=== PATIENT | female | born 1975 | race Caucasian/White ===

== ENCOUNTER 2021-05-01 08:14 | Emergency (ER) | payer SELFPAY ==
[~2021-05-01] VITALS: Ht 165.1 cm; Wt 102.1 kg
[2021-05-01 08:15] VITALS: BP 144/88
--- NOTE | 2021-05-01 08:21 | NUR ---
pt triaged and placed in lobby
--- NOTE | 2021-05-01 08:27 | NUR ---
pt being assessed by ermd at this time
[2021-05-01] MEDS ORDERED: IBUPROFEN 600 MG TAB PO ONE (08:30)
--- NOTE | 2021-05-01 08:38 | NUR ---
PT TAKEN TO RADIOLOGY VIA W/C.
--- NOTE | 2021-05-01 08:44 | NUR ---
PT BACK FROM XRAY, TAKEN TO ER BED 9
[2021-05-01] MEDS ORDERED: CEPH500C16 PO (09:18)
[2021-05-01 09:37] VITALS: BP 134/70
== END 2021-05-01 09:38 | disposition home or self-care (01) ==
LOC: MED 08:14
DX: L03.115 Cellulitis of right lower limb (principal)
CPT/HCPCS: 73562; 99283

== ENCOUNTER 2021-11-11 18:28 | Emergency (ER) | payer SELFPAY ==
[~2021-11-11] VITALS: Ht 165.1 cm; Wt 98.2 kg
[~2021-11-11 18:28] MED LIST: CEPH500C16 PO
[2021-11-11 18:42] VITALS: BP 159/121
--- NOTE | 2021-11-11 18:47 | NUR ---
PT AMB TO BED 7.
--- NOTE | 2021-11-11 18:59 | NUR ---
Pt coming from home ambulatory with steady gait. VSS. A&Ox4. Pt c/o right knee pain and swelling x5 days that happened abruptly. No trauma. Rates pain 9/10, constant, and non-radiating. No chest pain and no sob. Denies n/v. Allergic to Penicillin and codeine. HX of Hypothyroidism and is non-compliant with her medication. LMP was September 2021
--- NOTE | 2021-11-11 19:02 | NUR ---
BARBARA Calhoun at bedside examining pt.
[2021-11-11] MEDS ORDERED: LIDOCAINE 2% 1000 MG/50 ML VIAL INJ ONE (19:20)
[2021-11-11] MEDS ORDERED: CLIN300C2 PO (19:47)
--- NOTE | 2021-11-11 19:50 | NUR ---
Dr. Carson examining patient.
[2021-11-11 19:55] VITALS: BP 152/98
--- NOTE | 2021-11-11 19:55 | NUR ---
Patient discharged with v/s stable. Written and verbal after care instructions given and explained. Patient alert, oriented and verbalized understanding of instructions. Ambulatory with steady gait. All questions addressed prior to discharge. ID band removed. Patient advised to follow up with PMD. Rx of CLEOCIN given. Patient educated on indication of medication including possible reaction and side effects. Opportunity to ask questions provided and answered.
[2021-11-11] MEDS ORDERED: IBUP-2213 PO (19:58)
== END 2021-11-11 19:55 | disposition home or self-care (01) ==
LOC: MED 18:28
DX: M25.561 Pain in right knee (principal); G89.29 Other chronic pain; M25.461 Effusion, right knee; R03.0 Elevated blood-pressure reading, without diagnosis of hypertension; E03.9 Hypothyroidism, unspecified; Z79.1 Long term (current) use of non-steroidal anti-inflammatories (NSAID); Z79.2 Long term (current) use of antibiotics; Z88.0 Allergy status to penicillin; Z88.5 Allergy status to narcotic agent
CPT/HCPCS: 20610; 36415; 82945; 84157; 87070; 87075; 87205; 89051; 99284; J2001

== ENCOUNTER 2021-12-20 21:27 | Emergency (ER) | payer MEDICAID ==
[~2021-12-20] VITALS: Ht 165.1 cm; Wt 99.8 kg
[~2021-12-20 21:27] MED LIST changes: +CLIN300C2 PO; +IBUP-2213 PO
[2021-12-20 21:48] VITALS: BP 143/92
[2021-12-20] MEDS ORDERED: ACETAMINOPHEN EXTRA STRENGTH 500 MG TAB PO ONE (21:55)
[2021-12-20] MEDS ORDERED: BACITRACIN OINT 500 UNITS/GM PKT TP ONE (21:55)
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
[2021-12-20] MEDS ORDERED: ACET-10509 PO (22:46)
[2021-12-20] MEDS ORDERED: DOXY-690 PO (22:46)
[2021-12-20] MEDS ORDERED: METR-435 PO (22:49)
--- NOTE | 2021-12-20 22:56 | NUR ---
ANIMAL BITE REPORT FAXED
[2021-12-20] MEDS ORDERED: DOXYCYCLINE 100 MG CAP PO STA (23:51)
[2021-12-20] MEDS ORDERED: metroNIDAZOLE 500 MG TAB PO ONE (23:55)
[2021-12-21 00:01] VITALS: BP 150/95
--- NOTE | 2021-12-21 00:02 | NUR ---
Patient discharged with v/s stable. Written and verbal after care instructions ABOUT ANIMAL BITE given and explained. Patient alert, oriented and verbalized understanding of instructions. Ambulatory with steady gait. All questions addressed prior to discharge. ID band removed. Patient advised to follow up with PMD. Rx of TYLENOL EXTRA STRENGTH, VIBRAMYCIN, METRONIDAZOLE given. Patient educated on indication of medication including possible reaction and side effects. Opportunity to ask questions provided and answered.
== END 2021-12-21 00:01 | disposition home or self-care (01) ==
LOC: MED 21:27
DX: S51.852A Open bite of left forearm, initial encounter (principal); M25.561 Pain in right knee; E07.9 Disorder of thyroid, unspecified; F17.210 Nicotine dependence, cigarettes, uncomplicated; Z88.0 Allergy status to penicillin; Z88.5 Allergy status to narcotic agent; Z79.899 Other long term (current) drug therapy; Z98.890 Other specified postprocedural states; W54.0XXA Bitten by dog, initial encounter; Y93.89 Activity, other specified; Y92.89 Other specified places as the place of occurrence of the external cause; Y99.8 Other external cause status
CPT/HCPCS: 73090; 73140; 73560; 90471; 90715; 99284